=== PATIENT | female | born 1990 | race American Indian/Alaskan Native ===

== ENCOUNTER 2017-05-07 00:32 | Emergency (ER) | payer OTHER ==
[2017-05-07 00:58] VITALS: BP 118/78
[2017-05-07] MEDS ORDERED: ASPIRIN PO ONE (00:58)
--- NOTE | 2017-05-07 01:40 | XRay Report ---
FINAL REPORT PROCEDURE: XR CHEST ROUTINE 2V TECHNIQUE: PA and lateral chest radiographs were obtained. CPT 35499 HISTORY: SOB COMPARISON: No prior studies are available for comparison. FINDINGS: Heart: Normal. Mediastinum/Vessels: Normal. Lungs/Pleural space: Normal. Bony thorax: No acute osseous abnormality. Other: IMPRESSION: Normal examination.
[2017-05-07 02:12] LABS: Basophils # (Auto) 0.1 K/mm3 (0.0-0.1); Basophils % (Auto) 0.6 % (0.0-1.8); Eosinophils # (Auto) 0.2 K/mm3 (0.0-0.4); Hematocrit 38.1 % (30.3-42.9); Lymphocytes % (Auto) 34.4 % (13.4-35.0); Mean Corpuscular HGB Conc 34 % (30-34); Mean Corpuscular Hemoglobin 32 pg (28-32); Mean Corpuscular Volume 93 fl (79-97); Monocytes # (Auto) 0.6 K/mm3 (0.0-0.8); Monocytes % (Auto) 6.5 % (0.0-7.3); Platelet Count 323 K/mm3 (140-440); Red Cell Distribution Width 13.1 % (13.2-15.2)
[2017-05-07 02:25] LABS: BUN/Creatinine Ratio 18; Blood Urea Nitrogen 9 mg/dL (7-17); Calcium 9.3 mg/dL (8.4-10.2); Hemolysis Index 3
[2017-05-07 04:03] LABS: Bilirubin,Urine NEG (Negative); Blood,Urine SM (Negative); Color,Urine Yellow (Yellow); Mucus,Urine FEW /HPF; Nitrite,Urine NEG (Negative); Protein,Urine <15 mg/dL mg/dL (Negative); Urobilinogen,Urine < 2.0 mg/dL (<2.0)
[2017-05-07 04:12] LABS: HCG Qualitative,Urine Negative (Negative)
== END 2017-05-07 11:00 | disposition left against medical advice (07) ==
LOC: ED 00:32
DX: R07.9 Chest pain, unspecified (principal); Z53.21 Procedure and treatment not carried out due to patient leaving prior to being seen by health care provider
CPT/HCPCS: 36415; 71046; 80048; 81001; 81025; 84484; 84703; 85025; 93005; 93010

== ENCOUNTER 2019-08-28 23:33 | Emergency (ER) | payer SELFPAY ==
[2019-08-29 02:17] VITALS: BP 134/82
[2019-08-29] MEDS ORDERED: IBUPROFEN 600 MG TAB PO ONE (02:41)
[2019-08-29] MEDS ORDERED: ACETAMINOPHEN 500 MG TAB PO ONE (02:41)
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
== END 2019-08-29 05:45 | disposition home or self-care (01) ==
LOC: ED 23:33
DX: S53.401A Unspecified sprain of right elbow, initial encounter (principal); S20.219A Contusion of unspecified front wall of thorax, initial encounter; F17.200 Nicotine dependence, unspecified, uncomplicated; Z90.49 Acquired absence of other specified parts of digestive tract; Z79.899 Other long term (current) drug therapy; V89.2XXA Person injured in unspecified motor-vehicle accident, traffic, initial encounter; Y93.89 Activity, other specified; Y92.410 Unspecified street and highway as the place of occurrence of the external cause; Y99.8 Other external cause status
CPT/HCPCS: 71046

== ENCOUNTER 2021-01-10 06:47 | Inpatient (IN) | payer OTHER ==
[2021-01-10] MEDS ORDERED: TERBUTALINE 1 MG/1 ML INJ ONE (07:14)
[2021-01-10] MEDS ORDERED: LACTATED RINGERS 500 ML IV ONE ×2 (07:15→08:00)
[2021-01-10] MEDS: TERBUTALINE 1 MG/1 ML INJ SUB-Q SCH ×3 (07:20→08:35)
--- NOTE | 2021-01-10 08:16 | Ultrasound Report ---
ULTRASOUND OBSTETRIC LIMITED INDICATION / CLINICAL INFORMATION: presentation, DIANE. Clinical Gestational Age (GA) in weeks, days: 26, 4 TECHNIQUE: Transabdominal. COMPARISON: None available. FINDINGS: HEART RATE (beats per minute): 134 AMNIOTIC FLUID INDEX (cm) = 16.6 (normal = 7-24 cm) PRESENTATION: Cephalic. ADDITIONAL FINDINGS: None. IMPRESSION: 1. Amniotic fluid index is within normal limits. Fetus is in a cephalic presentation. Signer Name: Delano Mead MD Signed: 01/10/2021 8:12 AM Workstation Name: [employer]
[2021-01-10 08:20] LABS: Basophils # (Auto) 0.1 K/mm3 (0.0-0.1); Basophils % (Auto) 1.1 % (0.0-1.8); Eosinophils # (Auto) 0.1 K/mm3 (0.0-0.4); Eosinophils % (Auto) 0.5 % (0.0-4.3); Hematocrit 33.9 % (30.3-42.9); Lymphocytes # (Auto) 1.9 K/mm3 (1.2-5.4); Lymphocytes % (Auto) 15.6 % (13.4-35.0); Mean Corpuscular HGB Conc 33 % (30-34); Mean Corpuscular Volume 98 fl (79-97); Monocytes # (Auto) 0.7 K/mm3 (0.0-0.8); Monocytes % (Auto) 5.9 % (0.0-7.3); Platelet Count 296 K/mm3 (140-440); Red Blood Count 3.46 M/mm3 (3.65-5.03); Red Cell Distribution Width 12.5 % (13.2-15.2)
[2021-01-10 08:22] LABS: Bacteria,Urine 1+ /HPF (Negative); Bilirubin,Urine NEG (Negative); Blood,Urine SM (Negative); Color,Urine Yellow (Yellow); Protein,Urine <15 mg/dL mg/dL (Negative); Urobilinogen,Urine < 2.0 mg/dL (<2.0)
--- NOTE | 2021-01-10 08:30 | History and Physical Report ---
History of Present Illness Date of examination: 01/10/21 Date of admission: 01/10/2021 Chief complaint: cramping History of present illness: EDC Confirmation: 04/14/2021 Past History : 4 Term Births: 3 Premature Births: 0 Living Children: 3 Para: 3 Mult. Births: 0 Prev : 0 Aborta: 0 Elect. Ab: 0 Spont. Ab: 0 Ectopics: 0 # 1 Delivery date: 2009 Weeks Gestation: 38 labor: no Delivery type: Hours of labor: 8 Anesthesia type: none Delivery location: [place] Sex: Female weight: 6 -7 # 2 Delivery date: 2010 Weeks Gestation: 37 labor: no Delivery type: Anesthesia type: none Delivery location: [place] Sex: Male weight: 6-11 # 3 Delivery date: 03/30/2014 Weeks Gestation: 39 Delivery type: Vaginal Anesthesia type: none Delivery location: [facility] Infant Sex: female weight: 6.81 Comments: none Past Medical History: Reviewed history from 08/04/2013 and no changes required: Negative Past Medical History Past Surgical History: Reviewed history from 08/04/2013 and no changes required: Cholecystectomy lipo suction Risk Factors: Smoked Tobacco Use: Never smoker Smokeless Tobacco Use: Never Passive Smoke Exposure: no HIV High Risk Behavior: no Exercise: yes Seatbelt Use: 100 % Past Medical History 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 of genital herpes: yes Partner hx. of genital herpes: no Rash, Viral, or Febrile illness since last LMP? no Genetic History Congenital Heart Defect: Mom: no Dad: no Oliver Disease: Mom: no Dad: no Thalassemia Mom: no Dad: no Neural Tube Defect Mom: no Dad: no Down's Syndrome Mom: no Dad: no Parmjit-Sachs Mom: no Dad: no Sickle Cell Disease/Trait Mom: no Dad: no Hemophilia Mom: no Dad: no Muscular Dystrophy Mom: no Dad: no Cystic Fibrosis Mom: no Dad: no [place] Chorea Mom: no Dad: no Mental Retardation Mom: no Dad: no Fragile X Mom: no Dad: no Other Genetic/Chromosomal Disorder Mom: no Dad: no Child w/other defect Mom: no Dad: no Enviromental Exposures Xray Exposure: no Medication, drug, or alcohol use since LMP: no Chemical/Other Exposure: no Exposure to Cat Liter: no Hx of Parvovirus (Fifth Disease): no Occupational Exposure to Children: none Previous Medications (reviewed today): Macrobid 100 mg capsule (nitrofurantoin monohyd/m-cryst) Current Allergies (reviewed today): No known allergies Past History Past Medical History: other (see HPI) Past Surgical History: cholecystectomy, other (see HPI) 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: other (see HPI) Family/Genetic History: other (see HPI) Social history: smoking, other (see HPI) - Obstetrical History Expected Date of Delivery: 04/14/21 Actual Gestation: 26 Week(s) 4 Day(s) : 4 Para: 3 Hx # Term Pregnancies: 3 Number of Pregnancies: 0 Spontaneous Abortions: 0 Induced : 0 Number of Living Children: 3 Medications and Allergies Allergies Allergy/AdvReac Type Severity Reaction Status Date / Time No Known Allergies Allergy Verified 03/30/14 13:47 Home Medications Medication Instructions Recorded Confirmed Last Taken Type Pnv with Ca,No.72/Iron/FA 1 tab PO DAILY 12/31/13 03/30/14 Unknown History [ Plus Tablet] medroxyPROGESTERone ACETATE 150 mg IM ONCE #1 syringe 03/31/14 Unknown Rx [Depo-Provera (Contraception)] Cyclobenzaprine [Flexeril] 10 mg PO TID PRN #15 tablet 08/29/19 Unknown Rx Ibuprofen [Motrin] 800 mg PO Q8HR PRN #24 tablet 08/29/19 Unknown Rx Active Meds: Active Medications Betamethasone Acet/Betameth SodPhos (Betamet Acet/Betamet Na Ph 6 Mg/Ml Inj 5 Ml Mdv) 12 mg IM Q24HR MARISSA Stop: 01/11/21 10:01 Lactated Ringer's (Lactated Ringers) 500 mls @ 999 mls/hr IV BOLUS ONE Stop: 01/10/21 08:30 Magnesium Sulfate (Magnesium Sulfate 40gm/1000ml) 40 gm in 1,000 mls @ 50 mls/hr IV DIRECT MARISSA Magnesium Sulfate (Magnesium Sulfate 4gm/100ml) 4 gm in 100 mls @ 300 mls/hr IV ONCE ONE Stop: 01/10/21 08:41 Terbutaline Sulfate (Terbutaline 1 Mg/1 Ml Inj) 0.25 mg SUB-Q Q20MIN MARISSA Stop: 01/12/21 08:01 Review of Systems All systems: negative Genitourinary: contractions, no vaginal bleeding, no leakage of fluid - Vital Signs Vital signs: Vital Signs Pulse Pulse Ox 107 H 100 01/10/21 08:08 01/10/21 08:08 Temp Pulse Resp BP Pulse Ox 100 H 100 01/10/21 08:18 01/10/21 08:18 - Physical Exam Breasts: Positive: deferred Cardiovascular: Regular rate Lungs: Positive: Normal air movement Abdomen: Positive: normal appearance, soft Genitourinary (Female): Positive: normal external genitalia, normal perenium Vulva: both: normal Vagina: Positive: discharge Uterus: Positive: normal size, normal contour, other (gravid) Anus/Rectum: Positive: normal perianal skin Extremities: Positive: normal - Obstetrical FHR: auscultation normal, category 1 FHR comments: external monitors adjusted, maternal heart rate noted and distinguishable Uterine Contraction Monitor Mode: Palpation Cervical Dilatation: 2 Uterine Contraction Pattern: Absent Uterine Tone Measurement Phase: Resting Results Result Diagrams: 01/10/21 07:55 Abnormal lab results 01/10/21 01/10/21 Range/Units 07:40 07:55 WBC 12.0 H (4.5-11.0) K/mm3 RBC 3.46 L (3.65-5.03) M/mm3 MCV 98 H (79-97) fl RDW 12.5 L (13.2-15.2) % Seg Neutrophils % 76.9 H (40.0-70.0) % Seg Neutrophils # 9.2 H (1.8-7.7) K/mm3 Urine WBC (Auto) 11.0 H (0.0-6.0) /HPF All other labs normal. Tests: (1) Profile I ([id number]) Order Note: Clinical Information: SRC:UR HBsAg Screen Negative Negative *1 RPR Non Reactive Non Reactive *2 Rubella Antibodies, IgG 2.57 index Immune >0.99 *3 Non-immune <0.90 Equivocal 0.90 - 0.99 Immune >0.99 ABO Grouping A *4 Rh Factor Positive *5 Please note: Prior records for this patient's ABO / Rh type are not available for additional verification. Antibody Screen Negative Negative *6 WBC 8.4 x10E3/uL 3.4-10.8 *7 RBC [L] 3.17 x10E6/uL 3.77-5.28 *8 Hemoglobin [L] 10.7 g/dL 11.1-15.9 *9 Hematocrit [L] 32.3 % 34.0-46.6 *10 MCV [H] 102 fL 79-97 *11 MCH [H] 33.8 pg 26.6-33.0 *12 MCHC 33.1 g/dL 31.5-35.7 *13 RDW [L] 11.3 % 11.7-15.4 *14 Platelets 315 x10E3/uL 150-450 *15 Neutrophils 70 % Not Estab. *16 Lymphs 23 % Not Estab. *17 Monocytes 6 % Not Estab. *18 Eos 1 % Not Estab. *19 Basos 0 % Not Estab. *20 ! Immature Cells <No Reported Value> *21 Neutrophils (Absolute) 5.9 x10E3/uL 1.4-7.0 *22 Lymphs (Absolute) 1.9 x10E3/uL 0.7-3.1 *23 Monocytes(Absolute) 0.5 x10E3/uL 0.1-0.9 *24 Eos (Absolute) 0.1 x10E3/uL 0.0-0.4 *25 Baso (Absolute) 0.0 x10E3/uL 0.0-0.2 *26 ! Immature Granulocytes 0 % Not Estab. *27 ! Immature Grans (Abs) 0.0 x10E3/uL 0.0-0.1 *28 ! NRBC <No Reported Value> *29 Hematology Comments: <No Reported Value> *30 Tests: (2) AFP Tetra ([id number]) ! Results Report *31 ! Test Results: *Screen Negative* *32 ! Gest. Age on Collection Date 20.4 WEEKS *33 ! Gestat. Age Based On Ultrasound *34 20.4 on 11/28/2020 ! M[age]ENRIQUE [age] *35 ! Race Black *36 ! Weight 182 lbs *37 ! Insulin Dep Diabetes No *38 ! Multiple Gestation No *39 ! AFP Value 88.6 ng/mL *40 ! AFP MoM 1.49 *41 ! hCG Value 32720 mIU/mL *42 ! hCG MoM 1.49 *43 ! uE3 Value 1.92 ng/mL *44 ! uE3 MoM 0.83 *45 ! LEONIE Value 275.01 pg/mL *46 ! LEONIE MoM 1.62 *47 ! OSBR Risk 1 IN 7 *48 ! DSR (Second Trimester) 1 IN 6 *49 ! DSR (By Age) 1 IN 781 *50 ! T18 Risk Not increased *51 ! T18 (By Age) 1:3043 *52 ! Interpretation NL42 *53 Interpretation: Screen Negative This result is screen negative for OSB, Down Syndrome and Trisomy 18. The AFP MoM and patient specific risks calculated are based on the gestational age and the clinical information provided. This test can identify up to 80% of open neural tube defects. Closed neural tube defects and some open defects may not be detected by this test. The combination of maternal age, AFP, hCG, uE3, and LEONIE identifies 75-80% of Down Syndrome. The combination of maternal age, AFP, hCG and uE3 identifies 60% of Trisomy 18 pregnancies. The [employer] recommends amniocentesis be offered to women age 35 and older. Recalculations are not recommended when gestational dating by LMP and ultrasound are within 10 days. ! Comments: [facility] *54 Renee Jones, Ph.D., [facility] Director References: Available Upon Request. Multiples Of Median Cutoffs Abbreviation Definitions For AFP Elevations IDD- Insulin Dep Diabetes Schmitt 2.5 Black 2.8 OSBR- Open Spina Bifida IDD 2.0 Twins 4.5 Risk DSR Cutoff 1:270 DSR- Down Syndrome Risk T18 Cutoff 1:100 T18- Trisomy 18 Down Syndrome and Trisomy 18 screening are considered Investigational For further inquiries contact [facility] at [phone]. Tests: (3) HB Solu + Rflx Fra ([id number]) Hemoglobin (Hgb) Solubility Negative Negative *55 Tests: (4) HIV Ag/Ab with Reflex ([id number]) HIV Screen 4th Generation wRfx Non Reactive Non Reactive *56 Tests: (5) HCV Antibody reflex to CHAD ([id number]) HCV Ab <0.1 s/co ratio 0.0-0.9 *57 Tests: (6) Interpretation: ([id number]) ! Interpretation: SPRCS *58 Negative Not infected with HCV, unless recent infection is suspected or other evidence exists to indicate HCV infection. Tests: (7) Urine Culture, Routine ([id number]) Urine Culture, Routine Final report *59 Tests: (8) Result ([id number]) ! Result 1 No growth *60 Performed At: , [facility] [address] [id number] Butch Montemayor MD Phone: [phone] Assessment and Plan Pt presents to triage with c/o cramping pains. Cultures and labs obtained. Non- aggressive SVE performed by Jamia ALFREDO and pt found to be 2cm. US performed and WNL. Pt reports H/O @term x3 and denies H/O PTL and PTD. Abdomen soft and nontender, no contractions palpated or reported by pt s/p Terbutaline dose. POC d/w pt and SO. Questions encouraged. No questions or complaints verbalized at this time. Pt verbalizes understanding and agrees to POC. Dr. Campoverde and is project manager made aware. - Patient Problems (1) 26 weeks gestation of Current Visit: Yes Status: Acute Plan to address problem: continuous monitoring notify provider with any changes in status (2) labor in second trimester without delivery Current Visit: Yes Status: Acute Plan to address problem: FFN and ROM plus pending Magnesium Sulfate IV Betamethasone IM NICU consult
[2021-01-10] MEDS ORDERED: MAGNESIUM SULFATE 4 GM/100 ML BAG IV SCH (09:00)
[2021-01-10] MEDS ORDERED: MAGNESIUM SULFATE 40GM/1000ML 40 GM/1,000 ML BAG IV SCH (09:30)
[2021-01-10] MEDS ORDERED: BETAMET ACET/BETAMET NA PH 6 MG/ML INJ 5 ML MDV IM SCH (10:00)
[2021-01-10] MEDS ORDERED: fentaNYL 100 MCG/2 ML INJ ONE (11:31)
--- NOTE | 2021-01-10 12:55 | Event Note ---
Date: 01/10/21 CNM to bedside. Pt reports increased contraction pain at this time s/p Fentanyl dose, denies feeling rectal or vaginal pressure. Reports contractions q6-8 mins. Abdomen palpated soft and non-tender. SVE 3-4/80%/-3 with BBOW, unchanged from previous exam. RN to bedside and orders given for labor pain management. Pt declines epidural. POC d/w pt, FOC, and RN at bedside. Questions encouraged and answered. Pt verbalizes understanding and agrees to POC. NICU consult requested by CNM to be performed camille. RN aware. Orders in EMR. Monitor closely. Notify provider with any changes in status. late entry: @1113 call received from RN with pt c/o labor pains and needing medications. CNM to beside and SVE 3-4/80%/-3 with BBOW. Pt reports contractions q10-12 mins. EFM and toco monitors adjusted. Contractions palpable with moderate strength. Bedside US performed and VTX presentation confirmed. Orders given. Dr. Campoverde made aware.
[2021-01-10] MEDS ORDERED: NalbUPHINE 10 MG/1 ML INJ IV ONE (13:27)
[2021-01-10] MEDS ORDERED: LACTATED RINGERS 1,000 ML IV SCH (13:30)
[2021-01-10] MEDS ORDERED: NalbUPHINE 10 MG/1 ML INJ ONE (13:44)
--- NOTE | 2021-01-10 13:49 | Consultation ---
Consult Note - Parent Education I met with parent(s) and discussed the following:: Need for NICU admission, Poss ible need for intubation and surfactant or other resp support, Possible need for IV fluids/TPN and IV antibiotics, Possible need for umbilical lines, Importance of providing breast milk & encouraged pumping aft delivery, Slow feeding advancement and monitoring of tolerance. NG/OG feeds, Data for survival & survival without significant co-morbidities Parent(s) demonstrated understanding of all the information:: Yes Assessment and Plan - Plan Plan: Agree with Mag & steroids Will attend delivery Please call NICU with questions
[2021-01-10] MEDS ORDERED: fentaNYL 100 MCG/2 ML INJ IV ONE ×2 (17:39→21:06)
--- NOTE | 2021-01-10 17:47 | Event Note ---
Date: 01/10/21 CNM called to bedside for pt c/o painful contractions. Pt reports mild pressure with contractions. SVE 5/90%/-3 with BBOW. Bedside US performed and VTX presentation re-confirmed at this time. POC d/w pt and FOB. D/W pt risks of labor and poss. need for CS delivery if malpresentation. Pt verbalizes understanding and agrees to POC. Orders placed in EMR for labor pain management. NICU consult completed. Dr. Campoverde made aware. Orders received for Ampicillin and placed in EMR. RN notified
[2021-01-10] MEDS ORDERED: AMPICILLIN 2 GM in SODIUM CHLORIDE 0.9% 50 ML IV STA (17:49)
[2021-01-10] MEDS ORDERED: AMPICILLIN/NS 2 GM/100 ML 2 GM/100 ML BAG IV ONE ×2 (18:00→18:20)
[2021-01-10] MEDS ORDERED: valACYclovir 500 MG TAB PO SCH (18:59)
--- NOTE | 2021-01-10 20:59 | Progress Note ---
Assessment and Plan Patient requesting IV sedation, mag infusing @ 2gm/hr, pt reports ctx getting more intense. questionable SROM, bag of water palpated during exam but not bulging. ROM plus collected. Dr. Campoverde updated on pt's status. - Patient Problems (1) labor in second trimester Current Visit: Yes Status: Acute Qualifiers: Fetus number: single or unspecified fetus (2) 26 weeks gestation of Current Visit: Yes Status: Acute Subjective - Subjective Date of service: 01/10/21 Principal diagnosis: IUP @ 26+ weeks, PTL Patient reports: loss of fluid (pt reports feeling gush of fluid from vagina with last ctx), movement normal, contractions, no vaginal bleeding Objective - Vital Signs Vital Signs: Vital Signs - 12hr 01/10/21 01/10/21 01/10/21 08:58 09:03 09:08 Temperature Pulse Rate 107 H 113 H 117 H Respiratory Rate Blood Pressure O2 Sat by Pulse 100 100 100 Oximetry O2 Sat by Pulse Oximetry [ Anterior Bilateral Throughout] 01/10/21 01/10/21 01/10/21 09:13 09:18 09:23 Temperature Pulse Rate 118 H 113 H 112 H Respiratory Rate Blood Pressure O2 Sat by Pulse 100 99 100 Oximetry O2 Sat by Pulse Oximetry [ Anterior Bilateral Throughout] 01/10/21 01/10/21 01/10/21 09:28 09:33 09:38 Temperature Pulse Rate 117 H 120 H 103 H Respiratory Rate Blood Pressure O2 Sat by Pulse 100 99 99 Oximetry O2 Sat by Pulse Oximetry [ Anterior Bilateral Throughout] 01/10/21 01/10/21 01/10/21 10:32 10:33 10:37 Temperature Pulse Rate 97 H 103 H Respiratory Rate Blood Pressure 95/55 O2 Sat by Pulse 93 94 98 Oximetry O2 Sat by Pulse Oximetry [ Anterior Bilateral Throughout] 01/10/21 01/10/21 01/10/21 10:41 10:42 10:47 Temperature Pulse Rate 102 H 101 H 94 H Respiratory Rate Blood Pressure O2 Sat by Pulse 94 98 100 Oximetry O2 Sat by Pulse Oximetry [ Anterior Bilateral Throughout] 01/10/21 01/10/21 01/10/21 10:49 10:52 10:57 Temperature Pulse Rate 98 H 94 H Respiratory Rate Blood Pressure O2 Sat by Pulse 93 99 99 Oximetry O2 Sat by Pulse Oximetry [ Anterior Bilateral Throughout] 01/10/21 01/10/21 01/10/21 11:02 11:07 11:12 Temperature Pulse Rate 110 H 95 H 104 H Respiratory Rate Blood Pressure O2 Sat by Pulse 99 100 97 Oximetry O2 Sat by Pulse Oximetry [ Anterior Bilateral Throughout] 01/10/21 01/10/21 01/10/21 11:17 11:22 11:28 Temperature Pulse Rate 104 H 111 H 114 H Respiratory Rate Blood Pressure O2 Sat by Pulse 97 100 100 Oximetry O2 Sat by Pulse Oximetry [ Anterior Bilateral Throughout] 01/10/21 01/10/21 01/10/21 11:33 11:38 11:40 Temperature Pulse Rate 114 H 107 H 106 H Respiratory 20 Rate Blood Pressure O2 Sat by Pulse 100 100 87 Oximetry O2 Sat by Pulse Oximetry [ Anterior Bilateral Throughout] 01/10/21 01/10/21 01/10/21 11:43 11:48 11:53 Temperature Pulse Rate 98 H 93 H 86 Respiratory Rate Blood Pressure O2 Sat by Pulse 93 100 98 Oximetry O2 Sat by Pulse Oximetry [ Anterior Bilateral Throughout] 01/10/21 01/10/21 01/10/21 11:58 12:03 12:08 Temperature Pulse Rate 104 H 88 94 H Respiratory Rate Blood Pressure O2 Sat by Pulse 100 99 91 Oximetry O2 Sat by Pulse Oximetry [ Anterior Bilateral Throughout] 01/10/21 01/10/21 01/10/21 12:13 12:18 12:23 Temperature Pulse Rate 92 H 91 H 91 H Respiratory Rate Blood Pressure O2 Sat by Pulse 100 100 100 Oximetry O2 Sat by Pulse Oximetry [ Anterior Bilateral Throughout] 01/10/21 01/10/21 01/10/21 12:28 12:33 12:35 Temperature Pulse Rate 102 H 81 89 Respiratory Rate Blood Pressure O2 Sat by Pulse 100 100 92 Oximetry O2 Sat by Pulse Oximetry [ Anterior Bilateral Throughout] 01/10/21 01/10/21 01/10/21 12:38 12:43 12:48 Temperature Pulse Rate 99 H 95 H 96 H Respiratory Rate Blood Pressure O2 Sat by Pulse 100 100 100 Oximetry O2 Sat by Pulse Oximetry [ Anterior Bilateral Throughout] 01/10/21 01/10/21 01/10/21 12:53 12:58 13:03 Temperature Pulse Rate 98 H 97 H 85 Respiratory Rate Blood Pressure O2 Sat by Pulse 100 100 98 Oximetry O2 Sat by Pulse Oximetry [ Anterior Bilateral Throughout] 01/10/21 01/10/21 01/10/21 13:08 13:13 13:18 Temperature Pulse Rate 91 H 90 95 H Respiratory Rate Blood Pressure O2 Sat by Pulse 98 100 99 Oximetry O2 Sat by Pulse Oximetry [ Anterior Bilateral Throughout] 01/10/21 01/10/21 01/10/21 13:23 13:28 13:33 Temperature Pulse Rate 102 H 90 94 H Respiratory Rate Blood Pressure O2 Sat by Pulse 100 100 100 Oximetry O2 Sat by Pulse Oximetry [ Anterior Bilateral Throughout] 01/10/21 01/10/21 01/10/21 13:38 13:43 13:48 Temperature Pulse Rate 97 H 89 95 H Respiratory Rate Blood Pressure O2 Sat by Pulse 100 99 99 Oximetry O2 Sat by Pulse Oximetry [ Anterior Bilateral Throughout] 01/10/21 01/10/21 01/10/21 13:53 13:58 14:03 Temperature Pulse Rate 92 H 94 H 95 H Respiratory Rate Blood Pressure O2 Sat by Pulse 99 99 99 Oximetry O2 Sat by Pulse Oximetry [ Anterior Bilateral Throughout] 01/10/21 01/10/21 01/10/21 14:08 14:13 14:16 Temperature Pulse Rate 105 H 94 H 96 H Respiratory Rate Blood Pressure O2 Sat by Pulse 98 96 94 Oximetry O2 Sat by Pulse Oximetry [ Anterior Bilateral Throughout] 01/10/21 01/10/21 01/10/21 14:18 14:23 14:28 Temperature Pulse Rate 96 H 89 90 Respiratory Rate Blood Pressure O2 Sat by Pulse 98 98 97 Oximetry O2 Sat by Pulse Oximetry [ Anterior Bilateral Throughout] 01/10/21 01/10/21 01/10/21 14:33 14:38 14:43 Temperature Pulse Rate 95 H 91 H 87 Respiratory Rate Blood Pressure O2 Sat by Pulse 96 97 99 Oximetry O2 Sat by Pulse Oximetry [ Anterior Bilateral Throughout] 01/10/21 01/10/21 01/10/21 14:48 14:53 14:58 Temperature Pulse Rate 92 H 84 102 H Respiratory Rate Blood Pressure O2 Sat by Pulse 98 97 97 Oximetry O2 Sat by Pulse Oximetry [ Anterior Bilateral Throughout] 01/10/21 01/10/21 01/10/21 15:03 15:08 15:13 Temperature Pulse Rate 87 92 H 87 Respiratory Rate Blood Pressure O2 Sat by Pulse 98 99 98 Oximetry O2 Sat by Pulse Oximetry [ Anterior Bilateral Throughout] 01/10/21 01/10/21 01/10/21 15:18 15:23 15:28 Temperature Pulse Rate 96 H 83 101 H Respiratory Rate Blood Pressure O2 Sat by Pulse 100 99 100 Oximetry O2 Sat by Pulse Oximetry [ Anterior Bilateral Throughout] 01/10/21 01/10/21 01/10/21 15:33 15:38 15:43 Temperature Pulse Rate 85 86 87 Respiratory Rate Blood Pressure O2 Sat by Pulse 99 98 100 Oximetry O2 Sat by Pulse Oximetry [ Anterior Bilateral Throughout] 01/10/21 01/10/21 01/10/21 15:44 15:46 15:48 Temperature 98.6 F Pulse Rate 132 H 91 H Respiratory Rate Blood Pressure O2 Sat by Pulse 89 94 Oximetry O2 Sat by Pulse Oximetry [ Anterior Bilateral Throughout] 01/10/21 01/10/21 01/10/21 15:49 15:53 15:58 Temperature Pulse Rate 87 83 85 Respiratory Rate Blood Pressure O2 Sat by Pulse 89 100 99 Oximetry O2 Sat by Pulse Oximetry [ Anterior Bilateral Throughout] 01/10/21 01/10/21 01/10/21 16:03 16:08 16:13 Temperature Pulse Rate 86 93 H 90 Respiratory Rate Blood Pressure O2 Sat by Pulse 100 100 98 Oximetry O2 Sat by Pulse Oximetry [ Anterior Bilateral Throughout] 01/10/21 01/10/21 01/10/21 16:18 16:23 16:28 Temperature Pulse Rate 100 H 94 H 93 H Respiratory Rate Blood Pressure O2 Sat by Pulse 98 98 98 Oximetry O2 Sat by Pulse Oximetry [ Anterior Bilateral Throughout] 01/10/21 01/10/21 01/10/21 16:32 16:33 16:38 Temperature Pulse Rate 85 89 82 Respiratory Rate Blood Pressure O2 Sat by Pulse 88 97 97 Oximetry O2 Sat by Pulse Oximetry [ Anterior Bilateral Throughout] 01/10/21 01/10/21 01/10/21 16:44 16:49 16:54 Temperature Pulse Rate 93 H 94 H 97 H Respiratory Rate Blood Pressure O2 Sat by Pulse 97 97 97 Oximetry O2 Sat by Pulse Oximetry [ Anterior Bilateral Throughout] 01/10/21 01/10/21 01/10/21 16:59 17:02 17:04 Temperature Pulse Rate 91 H 104 H 99 H Respiratory Rate Blood Pressure O2 Sat by Pulse 97 94 97 Oximetry O2 Sat by Pulse Oximetry [ Anterior Bilateral Throughout] 01/10/21 01/10/21 01/10/21 17:09 17:14 17:19 Temperature Pulse Rate 94 H 89 98 H Respiratory Rate Blood Pressure O2 Sat by Pulse 98 96 97 Oximetry O2 Sat by Pulse Oximetry [ Anterior Bilateral Throughout] 01/10/21 01/10/21 01/10/21 17:24 17:29 17:31 Temperature Pulse Rate 92 H 98 H 97 H Respiratory Rate Blood Pressure O2 Sat by Pulse 99 98 94 Oximetry O2 Sat by Pulse Oximetry [ Anterior Bilateral Throughout] 01/10/21 01/10/21 01/10/21 17:34 17:39 17:42 Temperature Pulse Rate 93 H 89 101 H Respiratory Rate Blood Pressure O2 Sat by Pulse 97 98 91 Oximetry O2 Sat by Pulse Oximetry [ Anterior Bilateral Throughout] 01/10/21 01/10/21 01/10/21 17:44 17:47 17:49 Temperature Pulse Rate 95 H 94 H 97 H Respiratory Rate Blood Pressure O2 Sat by Pulse 93 93 94 Oximetry O2 Sat by Pulse Oximetry [ Anterior Bilateral Throughout] 01/10/21 01/10/21 01/10/21 17:55 18:00 18:01 Temperature Pulse Rate 95 H 57 L Respiratory Rate Blood Pressure O2 Sat by Pulse 94 87 89 Oximetry O2 Sat by Pulse Oximetry [ Anterior Bilateral Throughout] 01/10/21 01/10/21 01/10/21 18:05 18:08 18:13 Temperature Pulse Rate 108 H 99 H 97 H Respiratory Rate Blood Pressure O2 Sat by Pulse 95 94 99 Oximetry O2 Sat by Pulse Oximetry [ Anterior Bilateral Throughout] 01/10/21 01/10/21 01/10/21 18:14 18:18 18:20 Temperature Pulse Rate 89 86 Respiratory Rate Blood Pressure O2 Sat by Pulse 85 91 86 Oximetry O2 Sat by Pulse Oximetry [ Anterior Bilateral Throughout] 01/10/21 01/10/21 01/10/21 18:23 18:28 18:33 Temperature Pulse Rate 92 H 99 H 90 Respiratory Rate Blood Pressure O2 Sat by Pulse 96 97 99 Oximetry O2 Sat by Pulse Oximetry [ Anterior Bilateral Throughout] 01/10/21 01/10/21 01/10/21 18:34 18:38 18:43 Temperature Pulse Rate 56 L 93 H 92 H Respiratory Rate Blood Pressure O2 Sat by Pulse 81 L 100 99 Oximetry O2 Sat by Pulse Oximetry [ Anterior Bilateral Throughout] 01/10/21 01/10/21 01/10/21 18:48 18:53 18:58 Temperature Pulse Rate 91 H 91 H 85 Respiratory Rate Blood Pressure O2 Sat by Pulse 98 98 98 Oximetry O2 Sat by Pulse Oximetry [ Anterior Bilateral Throughout] 01/10/21 01/10/21 01/10/21 19:02 19:03 19:08 Temperature Pulse Rate 92 H 93 H 89 Respiratory Rate Blood Pressure 113/67 O2 Sat by Pulse 99 99 Oximetry O2 Sat by Pulse Oximetry [ Anterior Bilateral Throughout] 01/10/21 01/10/21 01/10/21 19:13 19:18 19:23 Temperature Pulse Rate 90 86 84 Respiratory Rate Blood Pressure O2 Sat by Pulse 99 99 100 Oximetry O2 Sat by Pulse Oximetry [ Anterior Bilateral Throughout] 01/10/21 01/10/21 01/10/21 19:28 19:33 19:38 Temperature Pulse Rate 86 86 93 H Respiratory Rate Blood Pressure O2 Sat by Pulse 100 99 100 Oximetry O2 Sat by Pulse Oximetry [ Anterior Bilateral Throughout] 01/10/21 01/10/21 01/10/21 19:43 19:48 19:53 Temperature Pulse Rate 86 101 H 86 Respiratory Rate Blood Pressure O2 Sat by Pulse 99 100 100 Oximetry O2 Sat by Pulse Oximetry [ Anterior Bilateral Throughout] 01/10/21 01/10/21 01/10/21 19:58 19:59 20:03 Temperature 97.9 F Pulse Rate 87 88 Respiratory Rate Blood Pressure O2 Sat by Pulse 100 99 Oximetry O2 Sat by Pulse 100 Oximetry [ Anterior Bilateral Throughout] 01/10/21 01/10/21 01/10/21 20:08 20:13 20:18 Temperature Pulse Rate 89 95 H 87 Respiratory Rate Blood Pressure O2 Sat by Pulse 99 100 99 Oximetry O2 Sat by Pulse Oximetry [ Anterior Bilateral Throughout] 01/10/21 01/10/21 01/10/21 20:23 20:28 20:33 Temperature Pulse Rate 88 89 95 H Respiratory Rate Blood Pressure O2 Sat by Pulse 98 98 100 Oximetry O2 Sat by Pulse Oximetry [ Anterior Bilateral Throughout] 01/10/21 01/10/21 01/10/21 20:38 20:43 20:48 Temperature Pulse Rate 93 H 90 98 H Respiratory Rate Blood Pressure O2 Sat by Pulse 100 100 100 Oximetry O2 Sat by Pulse Oximetry [ Anterior Bilateral Throughout] - Exam Cardiovascular: Regular rate Lungs: Normal air movement Abdomen: Present: normal appearance, soft. Absent: tenderness Vulva: both: normal (no lesions, + moisture present, ROM plus collected) Uterus: Present: normal, fundal height above umbilicus FHR: category 1 Uterine Contraction Monitor Mode: External Cervical Dilatation: 7 (cephalic, intemittant hand palpated duing exam) Cervical Effacement Percentage: 90 station: 0 Uterine Contraction Pattern: Regular Uterine Tone Measurement Phase: Contraction Uterine Contraction Intensity: Moderate Extremities: normal Deep Tendon Reflex Grade: Normal +2 - Labs Labs: Abnormal Labs 01/10/21 01/10/21 01/10/21 07:40 07:55 18:45 WBC 12.0 H RBC 3.46 L MCV 98 H RDW 12.5 L Seg Neutrophils % 76.9 H Seg Neutrophils # 9.2 H Magnesium 4.70 H Urine WBC (Auto) 11.0 H Laboratory Results - last 24 hr 01/10/21 01/10/21 01/10/21 07:15 07:15 07:40 WBC RBC Hgb Hct MCV MCH MCHC RDW Plt Count Lymph % (Auto) Angelina % (Auto) Eos % (Auto) Baso % (Auto) Lymph # (Auto) Angelina # (Auto) Eos # (Auto) Baso # (Auto) Seg Neutrophils % Seg Neutrophils # Magnesium Urine Color Yellow Urine Turbidity Clear Urine pH 7.0 Ur Specific Eleanor 1.005 Urine Protein <15 mg/dl Urine Glucose (UA) Neg Urine Ketones Neg Urine Blood Sm Urine Nitrite Neg Urine Bilirubin Neg Urine Urobilinogen < 2.0 Ur Leukocyte Esterase Mod Urine WBC (Auto) 11.0 H Urine RBC (Auto) 1.0 U Epithel Cells (Auto) 6.0 Urine Bacteria (Auto) 1+ Membranes Rupture Negative Syphilis IgG Antibody Coronavirus (PCR) Fibronectin Positive Blood Type Antibody Screen 01/10/21 01/10/21 01/10/21 07:55 07:55 07:55 WBC 12.0 H RBC 3.46 L Hgb 11.0 Hct 33.9 MCV 98 H MCH 32 MCHC 33 RDW 12.5 L Plt Count 296 Lymph % (Auto) 15.6 Angelina % (Auto) 5.9 Eos % (Auto) 0.5 Baso % (Auto) 1.1 Lymph # (Auto) 1.9 Angelina # (Auto) 0.7 Eos # (Auto) 0.1 Baso # (Auto) 0.1 Seg Neutrophils % 76.9 H Seg Neutrophils # 9.2 H Magnesium Urine Color Urine Turbidity Urine pH Ur Specific Eleanor Urine Protein Urine Glucose (UA) Urine Ketones Urine Blood Urine Nitrite Urine Bilirubin Urine Urobilinogen Ur Leukocyte Esterase Urine WBC (Auto) Urine RBC (Auto) U Epithel Cells (Auto) Urine Bacteria (Auto) Membranes Rupture Syphilis IgG Antibody Nonreactive Coronavirus (PCR) Fibronectin Blood Type A POSITIVE Antibody Screen Negative 01/10/21 01/10/21 09:25 18:45 WBC RBC Hgb Hct MCV MCH MCHC RDW Plt Count Lymph % (Auto) Angelina % (Auto) Eos % (Auto) Baso % (Auto) Lymph # (Auto) Angelina # (Auto) Eos # (Auto) Baso # (Auto) Seg Neutrophils % Seg Neutrophils # Magnesium 4.70 H Urine Color Urine Turbidity Urine pH Ur Specific Eleanor Urine Protein Urine Glucose (UA) Urine Ketones Urine Blood Urine Nitrite Urine Bilirubin Urine Urobilinogen Ur Leukocyte Esterase Urine WBC (Auto) Urine RBC (Auto) U Epithel Cells (Auto) Urine Bacteria (Auto) Membranes Rupture Syphilis IgG Antibody Coronavirus (PCR) Negative Fibronectin Blood Type Antibody Screen
[2021-01-10] MEDS ORDERED: AMPICILLIN/NS 1 GM/50 ML 1 GM/50 ML BAG IV SCH (21:00)
[2021-01-10] MEDS ORDERED: AMPICILLIN 1 GM in SODIUM CHLORIDE 0.9% 50 ML IV SCH (21:00)
[2021-01-10] MEDS ORDERED: OXYTOCIN DRIP 30,000 MILLIUNITS/500 ML BAG IV ONE (22:29)
[2021-01-10] MEDS ORDERED: OXYTOCIN DRIP 30 UNITS/500 ML BAG IV SCH (22:30)
[2021-01-10] MEDS ORDERED: miSOPROStol 200 MCG TAB ONE (22:34)
[2021-01-10] MEDS ORDERED: miSOPROStol 200 MCG TAB PR ONE (22:38)
--- NOTE | 2021-01-10 22:53 | Procedure Note ---
OB Delivery Note - Delivery Date of Delivery: 01/10/21 [place] Worker: DIRK DICKINSON Estimated blood loss: 300cc - Vaginal Delivery presentation: vertex Intrapartum events: labor-<37 weeks, foul smelling fluid Delivery induction: none Delivery monitor: external FHT, external uterine Route of delivery: Delivery placenta: spontaneous Delivery cord: nuchal cord, 3 umbilical vessels Episiotomy: none Delivery laceration: none Anesthesia: intravenous Delivery comments: Male infant born over intact perineum, SROM at time of (Fluid clear, foul smelling fluid suggestive of chorio.) 30 seconds of delayed cord clamping. nuchal cord x1. baby transferred to awaiting NICU team. Placenta delivered intact and complete. no lacerations. Bleeding noted increased after fundal massage, Cytotec 800mcg placed [place]. Bleeding scant with firm fundus. all counts correct. - Infant A Gender: Male ("Legend")
[2021-01-11] MEDS ORDERED: KETOROLAC 30 MG/1 ML INJ IV PRN (01:53)
[2021-01-11] MEDS ORDERED: MAGNESIUM HYDROXIDE (MOM) ORAL LIQD UDC PO PRN (01:53)
[2021-01-11] MEDS ORDERED: LANOLIN/ZINC/DIMETHICONE (LANSINOH) 7 GM TP PRN (01:53)
[2021-01-11] MEDS ORDERED: diphenhydrAMINE 25 MG CAP PO PRN (01:53)
[2021-01-11] MEDS ORDERED: WITCH HAZEL/ GLYCERIN PAD TP PRN (01:53)
[2021-01-11] MEDS ORDERED: ONDANSETRON 4 MG/2 ML INJ IV PRN (01:53)
[2021-01-11] MEDS ORDERED: OXYTOCIN DRIP 30 UNITS/500 ML BAG IV SCH (01:53)
[2021-01-11] MEDS ORDERED: ACETAMINOPHEN 325 MG TAB PO PRN (01:53)
[2021-01-11] MEDS ORDERED: PROMETHAZINE 25 MG TAB PO PRN (01:53)
[2021-01-11] MEDS: IBUPROFEN 800 MG TAB PO SCH ×4 (05:10→23:56)
[2021-01-11] MEDS: FERROUS SULFATE 325 MG TAB PO SCH ×2 (10:59→23:56)
[2021-01-11] MEDS: PRENATAL VIT27-FE FUMARATE-FOLIC ACID VIT TAB PO SCH (11:00)
--- NOTE | 2021-01-11 13:11 | Progress Note ---
Assessment and Plan A: 30 y.o. s/p . P: Continue with care. Anticipate discharge home. Subjective - Subjective Date of service: 01/11/21 Principal diagnosis: s/p Patient reports: appetite normal, voiding normally, pain well controlled, flatus, ambulating normally [place]: doing well, in NICU Objective - Vital Signs Latest vital signs: Vital Signs Temp Pulse Resp BP BP Pulse Ox Pulse Ox 01/11/21 11:41 98.4 F 76 20 97/66 100 01/11/21 09:00 98 01/11/21 08:03 98.2 F 95 H 16 104/74 100 01/11/21 05:10 18 01/11/21 04:33 98.8 F 80 20 103/70 100 01/11/21 01:56 100 01/11/21 01:55 98.9 F 95 H 18 96/62 98 01/11/21 00:33 83 100 01/11/21 00:28 92 H 100 01/11/21 00:23 88 100 01/11/21 00:18 86 97 01/11/21 00:13 85 100 01/11/21 00:08 86 100 01/11/21 00:03 86 100 01/10/21 23:58 82 99 01/10/21 23:53 85 100 01/10/21 23:48 82 100 01/10/21 23:46 81 112/63 01/10/21 23:43 87 99 01/10/21 23:38 85 100 01/10/21 23:33 89 100 01/10/21 23:28 76 100 01/10/21 23:23 87 100 01/10/21 23:18 82 100 01/10/21 23:13 82 100 01/10/21 23:08 87 100 01/10/21 23:07 78 93 01/10/21 23:03 86 99 01/10/21 22:58 94 H 100 01/10/21 22:53 85 100 01/10/21 22:48 90 100 01/10/21 22:43 89 100 01/10/21 22:38 93 H 100 01/10/21 22:33 84 99 01/10/21 22:28 103 H 100 01/10/21 22:23 100 H 99 01/10/21 22:18 107 H 100 10/20/21 22:13 104 H 99 10/20/21 22:08 94 H 98 10/20/21 22:03 103 H 97 10/20/21 21:58 90 97 10/20/21 21:53 101 H 100 10/20/21 21:48 94 H 100 10/20/21 21:43 93 H 99 10/20/21 21:38 99 H 100 10/20/21 21:33 95 H 100 10/20/21 21:28 102 H 99 10/20/21 21:23 95 H 100 10/20/21 21:18 112 H 100 10/20/21 21:13 95 H 100 10/20/21 21:08 99 H 100 10/20/21 21:03 97 H 100 10/20/21 20:58 100 H 100 10/20/21 20:53 96 H 100 10/20/21 20:48 98 H 100 10/20/21 20:43 90 100 10/20/21 20:38 93 H 100 10/20/21 20:33 95 H 100 10/20/21 20:28 89 98 10/20/21 20:23 88 98 10/20/21 20:18 87 99 10/20/21 20:13 95 H 100 10/20/21 20:08 89 99 10/20/21 20:03 97.9 F 88 99 10/20/21 19:59 100 10/20/21 19:58 87 100 10/20/21 19:53 86 100 10/20/21 19:48 101 H 100 10/20/21 19:43 86 99 10/20/21 19:38 93 H 100 10/20/21 19:33 86 99 10/20/21 19:28 86 100 10/20/21 19:23 84 100 10/20/21 19:18 86 99 10/20/21 19:13 90 99 10/20/21 19:08 89 99 10/20/21 19:03 93 H 99 10/20/21 19:02 92 H 113/67 10/20/21 18:58 85 98 10/20/21 18:53 91 H 98 10/20/21 18:48 91 H 98 10/20/21 18:43 92 H 99 10/20/21 18:38 93 H 100 10/20/21 18:34 56 L 81 L 10/20/21 18:33 90 99 10/20/21 18:28 99 H 97 10/20/21 18:23 92 H 96 1020/21 18:20 86 86 1020/21 18:18 89 91 1020/21 18:14 85 1020/21 18:13 97 H 99 1020/21 18:08 99 H 94 1020/21 18:05 108 H 95 1020/21 18:01 57 L 89 20/21 18:00 87 10/20/21 17:55 95 H 94 1020/21 17:49 97 H 94 1020/21 17:47 94 H 93 1020/21 17:44 95 H 93 20/21 17:42 101 H 91 20/21 17:39 89 98 20/21 17:34 93 H 97 20/21 17:31 97 H 94 20/21 17:29 98 H 98 20/21 17:24 92 H 99 20/21 17:19 98 H 97 1020/21 17:14 89 96 1020/21 17:09 94 H 98 1020/21 17:04 99 H 97 1020/21 17:02 104 H 94 1020/21 16:59 91 H 97 1020/21 16:54 97 H 97 1020/21 16:49 94 H 97 10/20/21 16:44 93 H 97 10/20/21 16:38 82 97 10/20/21 16:33 89 97 10/20/21 16:32 85 88 10/20/21 16:28 93 H 98 10/20/21 16:23 94 H 98 10/20/21 16:18 100 H 98 10/20/21 16:13 90 98 10/20/21 16:08 93 H 100 10/20/21 16:03 86 100 10/20/21 15:58 85 99 10/20/21 15:53 83 100 10/20/21 15:49 87 89 10/20/21 15:48 91 H 94 10/20/21 15:46 98.6 F 10/20/21 15:44 132 H 89 10/20/21 15:43 87 100 10/20/21 15:38 86 98 10/20/21 15:33 85 99 20/21 15:28 101 H 100 20/21 15:23 83 99 20/21 15:18 96 H 100 20/21 15:13 87 98 20/21 15:08 92 H 99 20/21 15:03 87 98 20/21 14:58 102 H 97 20/21 14:53 84 97 20/21 14:48 92 H 98 20/21 14:43 87 99 20/21 14:38 91 H 97 20/21 14:33 95 H 96 2021 14:28 90 97 20/21 14:23 89 98 21 14:18 96 H 98 01/10/21 14:16 96 H 94 01/10/21 14:13 94 H 96 01/10/21 14:08 105 H 98 01/10/21 14:03 95 H 99 01/10/21 13:58 94 H 99 01/10/21 13:53 92 H 99 21 13:48 95 H 99 21 13:43 89 99 2021 13:38 97 H 100 21 13:33 94 H 100 01/10/21 13:28 90 100 01/10/21 13:23 102 H 100 21 13:18 95 H 99 01/10/21 13:13 90 100 Pulse Ox 01/11/21 11:41 01/11/21 09:00 98 01/11/21 08:03 01/11/21 05:10 01/11/21 04:33 01/11/21 01:56 01/11/21 01:55 01/11/21 00:33 01/11/21 00:28 01/11/21 00:23 01/11/21 00:18 01/11/21 00:13 01/11/21 00:08 01/11/21 00:03 01/10/21 23:58 01/10/21 23:53 01/10/21 23:48 01/10/21 23:46 01/10/21 23:43 01/10/21 23:38 01/10/21 23:33 10/20/21 23:28 21 23:23 2021 23:18 2021 23:13 2021 23:08 2021 23:07 2021 23:03 21 22:58 2021 22:53 2021 22:48 2021 22:43 2021 22:38 2021 22:33 2021 22:28 20 22:23 20 22:18 20 22:13 20 22:08 01/10/21 22:03 01/10/21 21:58 01/10/21 21:53 01/10/21 21:48 01/10/21 21:43 01/10/21 21:38 20 21:33 20 21:28 01/10/21 21:23 01/10/21 21:18 01/10/21 21:13 01/10/21 21:08 01/10/21 21:03 01/10/21 20:58 01/10/21 20:53 2021 20:48 2021 20:43 2021 20:38 2021 20:33 2021 20:28 2021 20:23 2021 20:18 20 20:13 2021 20:08 2021 20:03 2021 19:59 2021 19:58 2021 19:53 2021 19:48 2021 19:43 2021 19:38 2021 19:33 2021 19:28 2021 19:23 2021 19:18 20 19:13 2021 19:08 2021 19:03 20 19:02 20 18:58 2021 18:53 2021 18:48 2021 18:43 2021 18:38 2021 18:34 01/10/21 18:33 01/10/21 18:28 01/10/21 18:23 01/10/21 18:20 01/10/21 18:18 01/10/21 18:14 01/10/21 18:13 01/10/21 18:08 01/10/21 18:05 01/10/21 18:01 01/10/21 18:00 01/10/21 17:55 01/10/21 17:49 01/10/21 17:47 01/10/21 17:44 01/10/21 17:42 01/10/21 17:39 01/10/21 17:34 01/10/21 17:31 01/10/21 17:29 01/10/21 17:24 01/10/21 17:19 01/10/21 17:14 01/10/21 17:09 01/10/21 17:04 01/10/21 17:02 01/10/21 16:59 01/10/21 16:54 01/10/21 16:49 01/10/21 16:44 01/10/21 16:38 01/10/21 16:33 01/10/21 16:32 01/10/21 16:28 01/10/21 16:23 01/10/21 16:18 01/10/21 16:13 01/10/21 16:08 01/10/21 16:03 01/10/21 15:58 01/10/21 15:53 01/10/21 15:49 01/10/21 15:48 01/10/21 15:46 01/10/21 15:44 01/10/21 15:43 01/10/21 15:38 01/10/21 15:33 01/10/21 15:28 01/10/21 15:23 01/10/21 15:18 01/10/21 15:13 01/10/21 15:08 01/10/21 15:03 01/10/21 14:58 01/10/21 14:53 01/10/21 14:48 01/10/21 14:43 01/10/21 14:38 01/10/21 14:33 01/10/21 14:28 01/10/21 14:23 01/10/21 14:18 01/10/21 14:16 01/10/21 14:13 01/10/21 14:08 01/10/21 14:03 01/10/21 13:58 01/10/21 13:53 01/10/21 13:48 01/10/21 13:43 01/10/21 13:38 01/10/21 13:33 01/10/21 13:28 01/10/21 13:23 01/10/21 13:18 01/10/21 13:13 Intake and Output 01/10/21 01/11/21 01/11/21 22:59 06:59 14:59 Intake Total 120 Output Total 1700 Balance -1700 120 Intake: Oral 120 Output: Urine 1700 Indwelling Catheter 1700 Other: Total, Intake Amount 120 Total, Output Amount 300 # Voids Void 1 Estimated Blood Loss 300 - Exam Breasts: Present: deferred Cardiovascular: Present: Regular rate Lungs: Present: Normal air movement Abdomen: Present: normal appearance, soft Uterus: Present: normal Extremities: Present: normal - Labs Labs: Abnormal lab results 01/10/21 01/10/21 Range/Units 18:45 23:17 Magnesium 4.70 H 3.90 H (1.7-2.3) mg/dL
[2021-01-11 13:33] LABS: Hemoglobin 9.6 gm/dl (10.1-14.3)
[2021-01-12] MEDS: IBUPROFEN 800 MG TAB PO SCH ×3 (06:46→15:15)
[2021-01-12] MEDS: PRENATAL VIT27-FE FUMARATE-FOLIC ACID VIT TAB PO SCH (09:56)
[2021-01-12] MEDS: FERROUS SULFATE 325 MG TAB PO SCH (09:56)
--- NOTE | 2021-01-12 10:16 | Discharge Summary ---
Providers - Providers Date of Admission: 01/10/21 22:14 Date of discharge: 01/12/21 Attending physician: NOVA LEVI MD Primary care physician: NOVA LEVI MD Hospitalization Reason for admission: active labor, IUP - Delivery: Episiotomy: none Laceration: none Other procedures: none complications: none Discharge diagnosis: delivery baby: male Condition at discharge: Good Disposition: 01 HOME / SELF CARE / HOMELESS - Discharge Diagnoses (1) 26 weeks gestation of Status: Acute (2) labor in second trimester without delivery Status: Acute Plan - Provider Discharge Summary Activity: routine, no sex for 6 weeks, no heavy lifting 4 weeks, no strenuous exercise Diet: routine Instructions: routine Additional instructions: [] Smoking cessation referral if applicable(refer to patient education folder for contact #) [] Refer to [facility] Booklet Call your doctor immediately for: * Fever > 100.5 * Heavy vaginal bleeding ( >1 pad per hour) * Severe persistent headache * Shortness of breath * Reddened, hot, painful area to leg or breast Please call [phone] and schedule a visit in 4-6 weeks. Thank you! - Follow up plan Follow up: NOVA LEVI MD [Primary Care Provider] - 7 Days
[2021-01-12 16:14] VITALS: BP 112/47
== END 2021-01-12 15:15 | disposition home or self-care (01) | DRG 805 ==
LOC: TRG 06:47 → APU 06:48 → LD 10:22 → TRG 22:13 → LD 22:14 → OB 01-11 01:24
PROVIDERS: ADMIT Student in an Organized Health Care Education/Training Program; ATTEND Student in an Organized Health Care Education/Training Program
PROC: 10E0XZZ Delivery of Products of Conception, External Approach (ICD-10-PCS; principal; 2021-01-10)
DX: O69.81X0 Labor and delivery complicated by cord around neck, without compression, not applicable or unspecified (principal); O60.12X0 Preterm labor second trimester with preterm delivery second trimester, not applicable or unspecified; Z37.0 Single live birth; Z3A.26 26 weeks gestation of pregnancy; Z20.822 Contact with and (suspected) exposure to COVID-19; Z90.49 Acquired absence of other specified parts of digestive tract; O99.334 Smoking (tobacco) complicating childbirth; F17.210 Nicotine dependence, cigarettes, uncomplicated
CPT/HCPCS: 36415; 59025; 76815; 81001; 82731; 83735; 84112; 85014; 85018; 85025; 86592; 86850; 86900; 86901; 87086; 88305; 96360; 96365; 99211; G0378; G0463; J0290; J0702; J2300; J2590; J3010; J3105; J3475; U0003